=== PATIENT | female | born 1935 | race Caucasian/White ===

== ENCOUNTER → 2017-12-11 | Outpatient (CLI) | payer MEDICARE, OTHER ==
--- NOTE | 2017-12-12 09:08 | MR ---
EXAMINATION TYPE: MR lumbar spine wo con DATE OF EXAM: 12/11/2017 COMPARISON: Prior lumbar MRI 07/16/2015 HISTORY: Low back pain, concern cord compression TECHNIQUE: Multiplanar, multisequence images of the lumbar spine were acquired. Patient refused intravenous cont rast. L1-L2: Normal disc appearance without desiccation. No herniation, protrusion or disc bulging. No ca nal stenosis is present. Foramina are patent bilaterally. L2-L3: Posterior broad-based disc bulge causes mild anterior mass effect on the thecal sac. Circumfer ential extension of endplate disc complex extends laterally, only minimal foraminal encroachment. Onl y minimal central stenosis. L3-L4: Posterior extension of endplate disc complex causes mild anterior mass effect on the thecal sa c. There is some left-sided foraminal encroachment due to lateral extension of endplate disc complex. Facet arthropathy change with hypertrophy of ligamentum flavum is noted causing some posterior later al mass effect on the thecal sac, encroachment on the lateral recess greater on the left. L4-L5: Facet arthropathy with hypertrophy of the ligamentum flavum causes some lateral mass effect on the thecal sac, circumferential extension endplate disc complex results in foraminal encroachment gr eater on the right and likely contributed by spinal curvature. There is no significant central stenos is. Broad-based posterior disc bulge causes anterior mass effect on the thecal sac. L5-S1: Similar in appearance, broad-based posterior disc bulge contacts the anterior thecal sac, no s ignificant central stenosis. Lateral extension of broad-based disc bulge encroaches somewhat on the n eural foramen greater on the right. There is facet arthropathy. Lumbar segments are intact. No paraspinal masses are identified. Conus medullaris has a normal appe arance. There is spinal curvature present. Lumbar vertebral bodies show preserved height. There is mu ltilevel spondylosis with endplate discogenic marrow signal change. Alignment is similar, minimal ant erolisthesis grade 1 L2-3. Loss of disc height and signal present L4-5, L3-4 with associated vacuum p henomenon noted at the intervertebral disc levels. Descending aorta to be somewhat ectatic at 3.1 cm. Postop changes are again noted posterior elements of L4 and L5. IMPRESSION: Degenerative disc disease, facet arthropathy, foraminal encroachment are similar to prior exam. Desce nding aortic ectasia.
== END | disposition home or self-care (01) ==
LOC: RADMRIMAIN 18:39
PROVIDERS: ATTEND Internal Medicine Geriatric Medicine
DX: M51.36 Other intervertebral disc degeneration, lumbar region (principal); M46.96 Unspecified inflammatory spondylopathy, lumbar region
CPT/HCPCS: 72148